=== PATIENT | male | born 1955 | race Caucasian/White ===

== ENCOUNTER 2021-05-15 08:26 | Day surgery (SDC) | payer MEDICARE, OTHER ==
[~2021-05-15 08:26] MED LIST: ENBREL50 MG/M1 IM; FLONASE AL50 MCG/ACT IN; LOSARTAN POTASS25 MG PO; PRESERVISION AREDS 2 PO; [UNRECOGNIZED DRUG - REMARK] PO
[2021-05-15 12:34] VITALS: BP 149/86
== END 2021-05-15 12:48 | disposition home or self-care (01) ==
LOC: ENDO 08:26 → ORM 11:00 → ENDO 11:00
PROVIDERS: ATTEND Surgery
PROC: 0DJD8ZZ Inspection of Lower Intestinal Tract, Via Natural or Artificial Opening Endoscopic (ICD-10-PCS; principal; 2021-05-15)
DX: Z12.11 Encounter for screening for malignant neoplasm of colon (principal); K57.30 Diverticulosis of large intestine without perforation or abscess without bleeding; K64.8 Other hemorrhoids; I10 Essential (primary) hypertension; Z86.010 Personal history of colon polyps

== ENCOUNTER 2022-08-18 12:46 | Emergency (ER) | payer MEDICARE, OTHER ==
[~2022-08-18] VITALS: Ht 185.4 cm; Wt 81.8 kg
[2022-08-18] VITALS (7 sets, daily range): BP systolic 106–122; BP diastolic 61–77
[2022-08-18] MEDS ORDERED: NORVASC5 M1 PO (13:04)
[2022-08-18] MEDS ORDERED: VITAMIN D33000 UNIT PO (13:05)
[2022-08-18 13:25] LABS: HEMOGLOBIN 13.9 g/dl (14.0-18.0); IMMATURE GRANULOCYTES 0.1 % (0.0-5.0); MEAN CELL VOLUME 92.8 fL CALC (80.0-100.0); MEAN CORPUSCULAR HGB 31.4 pG CALC (26.0-32.0); MEAN CORPUSCULAR HGB CONC 33.9 g/dL CAL (32.0-36.0); NEUT# 6.54 thou/uL (1.82-7.42); RED BLOOD COUNT 4.42 mill/uL (4.70-6.10); RED CELL DISTRI WIDTH 12.3 % (11.5-15.5)
[2022-08-18 13:35] LABS: ALBUMIN 4.4 g/dL (3.2-5.0); ALKALINE PHOSPHATASE 93 u/l (38-126); ANION GAP 16 (6-22 (CALC)); BILIRUBIN, TOTAL 0.4 mg/dL (0.0-1.4); BUN 19 mg/dL (8-23); BUN/CREATININE RATIO 14 (12-20 (CALC)); CARBON DIOXIDE 26 mmol/l (22-30); CHLORIDE 103 mmol/l (95-108); CREATININE 1.3 mg/dL (0.7-1.3); GFR FOR AFR.AMER. > 60 ML/MIN (>=60 (CALC)); GFR OTHER RACES 55 ML/MIN (>=60 (CALC)); POTASSIUM 4.4 mmol/l (3.5-5.1); SGOT/AST 29 u/l (19-48); SODIUM 140 mmol/l (137-146); TOTAL PROTEIN 7.2 g/dL (6.3-8.2)
== END 2022-08-18 15:43 | disposition home or self-care (01) ==
LOC: ED 12:46
PROVIDERS: Family Medicine
DX: R42 Dizziness and giddiness (principal); I10 Essential (primary) hypertension

== ENCOUNTER 2022-10-27 20:38 | Emergency (ER) | payer MEDICARE, OTHER ==
[~2022-10-27] VITALS: Ht 185.4 cm; Wt 81.0 kg
[~2022-10-27 20:38] MED LIST changes: +NORVASC5 M1 PO; +VITAMIN D33000 UNIT PO
[2022-10-27] MEDS ORDERED: TYLENOL # 31 TA1 PO (22:06)
[2022-10-27 22:30] VITALS: BP 162/92
== END 2022-10-27 22:40 | disposition home or self-care (01) ==
LOC: ED 20:38
PROC: 2W3DX1Z Immobilization of Left Lower Arm using Splint (ICD-10-PCS; principal; 2022-10-27)
DX: S52.502A Unspecified fracture of the lower end of left radius, initial encounter for closed fracture (principal); S52.602A Unspecified fracture of lower end of left ulna, initial encounter for closed fracture; I10 Essential (primary) hypertension; W01.0XXA Fall on same level from slipping, tripping and stumbling without subsequent striking against object, initial encounter; Y92.009 Unspecified place in unspecified non-institutional (private) residence as the place of occurrence of the external cause